=== PATIENT | male | born 1985 | race Caucasian/White ===

== ENCOUNTER 2020-12-19 19:19 | Emergency (ER) | payer BC ==
[~2020-12-19] VITALS: Ht 165.1 cm; Wt 104.3 kg
[~2020-12-19 19:19] MED LIST: DEPER500 PO; QUET100T PO
[2020-12-19 19:27] VITALS: BP 143/80
--- NOTE | 2020-12-19 19:27 | NUR ---
TO BED AMBULATORY
--- NOTE | 2020-12-19 19:36 | NUR ---
35/M BIB self C/O lowe back pain since friday. Pt rates pain / and states is aggravated by moving and is radiating towards the side. Pt denies any recent trauma and work entails some lifting. denies PMH NKDA
--- NOTE | 2020-12-19 20:13 | NUR ---
Dr. Cano at bedside examining patient
[2020-12-19] MEDS ORDERED: DEXAMETHASONE 10 MG/ML VIAL IM ONE (20:25)
[2020-12-19] MEDS ORDERED: KETOROLAC 30 MG/ML VIAL IM ONE (20:25)
--- NOTE | 2020-12-19 21:13 | NUR ---
Patient discharged with v/s stable. Written and verbal after care instructions given and explained. Patient verbalized understanding. Ambulatory with steady gait. All questions addressed prior to discharge. Advised to follow up with PMD.
[2020-12-19] MEDS ORDERED: CYCL-711 PO (21:41)
== END 2020-12-19 21:13 | disposition home or self-care (01) ==
LOC: MED 19:19
DX: M54.5 Low back pain (principal); F17.210 Nicotine dependence, cigarettes, uncomplicated; Z79.899 Other long term (current) drug therapy
CPT/HCPCS: 96372; 99284; J1100; J1885

== ENCOUNTER 2022-10-04 20:16 | Emergency (ER) | payer BC ==
[~2022-10-04] VITALS: Ht 160 cm; Wt 115.2 kg
[~2022-10-04 20:16] MED LIST changes: +CYCL-711 PO
[2022-10-04 20:46] VITALS: BP 138/87
--- NOTE | 2022-10-04 20:50 | NUR ---
PT TO BED
[2022-10-04 21:38] VITALS: BP 136/88
[2022-10-04 21:48] LABS: BASOPHILS # (AUTO) 0.1 K/uL (0.00-0.22); BASOPHILS % (AUTO) 0.5 % (0.0-2.0); EOSINOPHILS # (AUTO) 0.7 K/uL (0-0.4); EOSINOPHILS % (AUTO) 7.1 % (0.0-4.0); HEMATOCRIT 42.5 % (36-52); HEMOGLOBIN 14.2 g/dL (12.0-18.0); LYMPHOCYTES # (AUTO) 3.6 K/uL (2.0-11.5); MEAN CORPUSCULAR HEMOGLOBIN 29 pg (27-31); MEAN CORPUSCULAR HGB CONC 34 g/dL (33-37); MEAN CORPUSCULAR VOLUME 85.1 fL (80-94); MONOCYTES # (AUTO) 0.8 K/uL (0.8-1.0); MONOCYTES % (AUTO) 8.1 % (1.7-9.3); NEUTROPHILS % (AUTO) 49.3 % (42.2-75.2); PLATELET COUNT (AUTO) 249 K/uL (140-450); RED BLOOD CELL COUNT(AUTO) 4.99 MIL/uL (4.20-6.10); RED CELL DISTRIBUTION WIDTH 14.3 % (11.6-13.7); WHITE BLOOD COUNT (AUTO) 10.2 K/uL (4.8-10.8)
--- NOTE | 2022-10-04 21:55 | NUR ---
36YR OLD MALE BIB SELF C/O DIZZINESS. PT STATES HE WAS AT [employer] [facility] AND FELT DIZZY. DENIES CP OR SOB. 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 HOB IS ELEVATED. DENIES V/D/N OR FEVER. DENIES ANY OTHER SX. NKDA NO MED HX
[2022-10-04 22:12] LABS: ALBUMIN 4.2 g/dL (3.4-5.0); CARBON DIOXIDE 27.7 mmol/L (21-32); CREATININE 0.8 mg/dL (0.6-1.3); PHOSPHORUS 2.7 mg/dL (2.5-4.9); POTASSIUM 3.7 mmol/L (3.5-5.1); TOTAL BILIRUBIN 0.1 mg/dL (0.0-1.0)
== END 2022-10-04 23:22 | disposition home or self-care (01) ==
LOC: MED 20:16
DX: R53.1 Weakness (principal); I10 Essential (primary) hypertension; Z79.899 Other long term (current) drug therapy
CPT/HCPCS: 36415; 80053; 83735; 84100; 85025; 93005; 99284

== ENCOUNTER 2024-04-08 08:06 | Emergency (ER) | payer BC, OTHER ==
[~2024-04-08] VITALS: Ht 165.1 cm; Wt 113.4 kg
[2024-04-08 08:25] VITALS: BP 143/83; PULSE 82; RESP 20; TEMP 98; O2SAT 96
[2024-04-08] MEDS ORDERED: IBUP-2213 PO (08:43)
[2024-04-08] MEDS ORDERED: LOPE-289 PO (08:43)
[2024-04-08] MEDS ORDERED: ONDA8TAB87 PO (08:43)
== END 2024-04-08 09:10 | disposition home or self-care (01) ==
LOC: MED 08:06
DX: R11.2 Nausea with vomiting, unspecified (principal); R19.7 Diarrhea, unspecified; R10.13 Epigastric pain; F17.200 Nicotine dependence, unspecified, uncomplicated; Z79.899 Other long term (current) drug therapy
CPT/HCPCS: 99283